=== PATIENT | male | born 1990 | race Caucasian/White ===

== ENCOUNTER 2017-03-20 13:51 | Emergency (ER) | payer SELFPAY | END 2017-03-20 15:25 | disposition home or self-care (01) | LOC: SCSER 13:51 | DX: J11.1 Influenza due to unidentified influenza virus with other respiratory manifestations (principal); K50.90 Crohn's disease, unspecified, without complications; F31.9 Bipolar disorder, unspecified; F17.210 Nicotine dependence, cigarettes, uncomplicated | CPT/HCPCS: 99283 ==

== ENCOUNTER 2017-04-17 12:04 | Emergency (ER) | payer SELFPAY ==
[2017-04-17] MEDS ORDERED: Ondansetron HCl/PF 4 MG/2 ML Vial ONE (13:05)
[2017-04-17] MEDS ORDERED: Promethazine HCl 25 MG/ML VIAL ONE (13:24)
[2017-04-17] MEDS ORDERED: cloNIDine 0.1 MG TAB ONE (14:35)
== END 2017-04-17 16:09 | disposition home or self-care (01) ==
LOC: ERS 12:04
DX: F11.23 Opioid dependence with withdrawal (principal); F31.9 Bipolar disorder, unspecified; F17.210 Nicotine dependence, cigarettes, uncomplicated
CPT/HCPCS: 96365; 96375; J2405; J2550

== ENCOUNTER 2017-04-24 15:28 | Emergency (ER) | payer SELFPAY, OTHER ==
--- NOTE | 2017-04-24 16:27 | RAD ---
CHEST ONE VIEW 04/24/17 HISTORY: Intractable emesis. COMPARISON: Chest dated 07/25/14. FINDINGS: The lungs are clear. No pneumothorax or effusion. The cardiac silhouette and mediastinal contours are within normal limits. IMPRESSION: No acute intrathoracic abnormality. No significant change. POS: [facility]
[2017-04-24] MEDS ORDERED: Ondansetron HCl/PF 4 MG/2 ML Vial ONE (16:31)
[2017-04-24] MEDS ORDERED: Famotidine/PF 20 mg/2ml Vial ONE (16:31)
[2017-04-24 16:39] LABS: #Basophils 0.1 thou/uL (0.0-0.2); #Lymphocytes 3.4 thou/uL (1.20-3.40); #Monocytes 0.9 thou/uL (0.11-0.59); #Neutrophils 11.1 thou/uL (1.40-6.50); %Basophils 0.8 % (0.0-1.0); %Eosinophils 0.3 % (0.0-10.0); %Lymphocytes 21.7 % (21.0-51.0); %Monocytes 5.6 % (0.0-10.0); %Neutrophils 71.6 % (42.0-75.0); Mean Corpuscular HGB CONC 33.9 g/dL (32.0-36.0); Mean Corpuscular Volume 91.4 fl (80.0-94.0); Mean Platelet Volume 7.5 fL (7.4-10.4); Platelet Count 267 thou/uL (130-400); RBC Distribution Width 12.6 % (11.5-14.5); Red Blood Cell (RBC) Count 5.15 mill/uL (4.70-6.10); White Blood Cell (WBC) Count 15.5 thou/uL (4.8-10.8)
[2017-04-24 17:00] LABS: ALT (SGPT) 23 U/L (8-55); AST (SGOT) 12 U/L (5-34); Albumin 4.9 g/dL (3.5-5.0); Alkaline Phosphatase 111 U/L (40-150); Anion Gap 14 mmol/L (10-20); BUN (Urea Nitrogen) 10 mg/dL (8.9-20.6); Bilirubin, Total 0.4 mg/dL (0.2-1.2); Calc. Creatinine Clearance 0 mL/min (70-130); Calcium 10.3 mg/dL (7.8-10.44); Carbon Dioxide 21 mmol/L (22-29); Chloride 108 mmol/L (98-107); Estimated GFR-MDRD Greater than 90; Globulin 3.3 g/dL (2.4-3.5); Glucose 87 mg/dL (70-105); Potassium 3.2 mmol/L (3.5-5.1); Protein, Total 8.2 g/dL (6.0-8.3); Sodium 140 mmol/L (136-145)
[2017-04-24] MEDS ORDERED: Promethazine HCl 25 MG/ML VIAL ONE (17:44)
--- NOTE | 2017-04-24 19:07 | RAD ---
TWO VIEWS ABDOMEN 04/24/17 HISTORY: Emesis. Nausea and vomiting. Symptoms worsening. COMPARISON: None. FINDINGS: Abdomen two views: Nonspecific bowel gas pattern. No suspicious densities in the abdomen or pelvis. Phleboliths in the l eft and right hemipelvis are noted. No differential air fluid levels. No pneumoperitoneum. IMPRESSION: Nonspecific bowel gas pattern. POS: [facility]
== END 2017-04-24 18:52 | disposition home or self-care (01) ==
LOC: ERS 15:28
DX: G43.A1 Cyclical vomiting, in migraine, intractable (principal); F31.9 Bipolar disorder, unspecified; F17.210 Nicotine dependence, cigarettes, uncomplicated; Z79.899 Other long term (current) drug therapy
CPT/HCPCS: 36415; 71045; 74019; 80053; 85025; 96372; 96374; 96375; J2405; J2550; S0028

== ENCOUNTER 2017-11-25 15:39 | Emergency (ER) | payer OTHER, SELFPAY ==
[2017-11-25] MEDS ORDERED: Promethazine HCl 25 MG/ML VIAL ONE (16:10)
[2017-11-25 16:16] LABS: #Basophils 0.1 thou/uL (0.0-0.2); #Lymphocytes 3.8 thou/uL (1.20-3.40); #Monocytes 0.7 thou/uL (0.11-0.59); #Neutrophils 7.3 thou/uL (1.40-6.50); %Eosinophils 0.1 % (0.0-10.0); %Lymphocytes 31.9 % (21.0-51.0); %Monocytes 6.2 % (0.0-10.0); %Neutrophils 60.8 % (42.0-75.0); Hemoglobin 15.9 g/dL (14.0-18.0); Mean Corpuscular HGB CONC 34.4 g/dL (32.0-36.0); Mean Corpuscular Hemoglobin 28.8 pg (27.0-31.0); Mean Corpuscular Volume 83.6 fL (78.0-98.0); Mean Platelet Volume 7.4 fL (7.4-10.4); Platelet Count 262 thou/uL (130-400); RBC Distribution Width 11.3 % (11.5-14.5); Red Blood Cell (RBC) Count 5.51 mill/uL (4.70-6.10)
[2017-11-25 16:38] LABS: ALT (SGPT) 44 U/L (8-55); AST (SGOT) 26 U/L (5-34); Alkaline Phosphatase 117 U/L (40-150); Anion Gap 17 mmol/L (10-20); BUN (Urea Nitrogen) 23 mg/dL (8.9-20.6); Bilirubin, Total 0.6 mg/dL (0.2-1.2); Calc. Creatinine Clearance 0 mL/min (70-130); Calcium 10.5 mg/dL (7.8-10.44); Carbon Dioxide 23 mmol/L (22-29); Chloride 105 mmol/L (98-107); Estimated GFR-MDRD 78; Globulin 3.8 g/dL (2.4-3.5); Glucose 99 mg/dL (70-105); Potassium 3.8 mmol/L (3.5-5.1); Protein, Total 8.8 g/dL (6.0-8.3); Sodium 141 mmol/L (136-145)
== END 2017-11-25 17:29 | disposition home or self-care (01) ==
LOC: SCSER 15:39
DX: F11.23 Opioid dependence with withdrawal (principal); F31.9 Bipolar disorder, unspecified
CPT/HCPCS: 36415; 80053; 85025; 96361; 96365; J2550

== ENCOUNTER 2017-11-30 10:40 | Emergency (ER) | payer SELFPAY ==
[~2017-11-30 10:40] MED LIST: Iopamidol 370 76% 100 ML VIAL ONE
[2017-11-30] MEDS ORDERED: Ondansetron ODT 4 MG TAB ONE (11:04)
[2017-11-30 11:24] LABS: #Basophils 0.2 thou/uL (0.0-0.2); #Lymphocytes 2.9 thou/uL (1.20-3.40); #Monocytes 0.8 thou/uL (0.11-0.59); %Basophils 1.4 % (0.0-1.0); %Eosinophils 0.4 % (0.0-10.0); %Lymphocytes 26.9 % (21.0-51.0); %Monocytes 7.2 % (0.0-10.0); Hemoglobin 15.7 g/dL (14.0-18.0); Mean Corpuscular HGB CONC 34.3 g/dL (32.0-36.0); Mean Corpuscular Hemoglobin 29.2 pg (27.0-31.0); Mean Corpuscular Volume 85.1 fL (78.0-98.0); Mean Platelet Volume 7.6 fL (7.4-10.4); Platelet Count 248 thou/uL (130-400); RBC Distribution Width 11.8 % (11.5-14.5); Red Blood Cell (RBC) Count 5.39 mill/uL (4.70-6.10); White Blood Cell (WBC) Count 10.9 thou/uL (4.8-10.8)
[2017-11-30] MEDS ORDERED: Pantoprazole 40 MG VIAL ONE (11:51)
[2017-11-30] MEDS ORDERED: Lorazepam 2 MG/ML VIAL ONE (11:51)
--- NOTE | 2017-11-30 12:09 | CT ---
CT OF THE ABDOMEN AND PELVIS WITH IV CONTRAST: INDICATION: History of vomiting and abdominal pain. COMPARISON: None. FINDINGS: The lung bases are clear. No focal hepatic lesion is evident. Pancreas, adrenal glands, and spleen appear within normal limits. The kidneys are normal-appearing. No free fluid or enlarged lymph nodes are evident. There is normal appendix in the right lower quadrant. The colon is largely decompressed. Small bowel is of normal caliber. No free fluid is evident within the pelvis. No lymphadenopathy is seen. No acute osseous abnormalit y is noted. IMPRESSION: No CT abnormality is seen. POS: [facility]
[2017-11-30] MEDS ORDERED: Dicyclomine 20 MG TAB ONE (12:24)
[2017-11-30 12:38] LABS: ALT (SGPT) 15 U/L (8-55); AST (SGOT) 12 U/L (5-34); Albumin 4.9 g/dL (3.5-5.0); Alkaline Phosphatase 116 U/L (40-150); Anion Gap 19 mmol/L (10-20); BUN (Urea Nitrogen) 16 mg/dL (8.9-20.6); Bilirubin, Total 0.5 mg/dL (0.2-1.2); CK (CPK) 71 U/L (30-200); Calc. Creatinine Clearance 0 mL/min (70-130); Calcium 10.2 mg/dL (7.8-10.44); Carbon Dioxide 22 mmol/L (22-29); Chloride 104 mmol/L (98-107); Estimated GFR-MDRD 79; Globulin 3.5 g/dL (2.4-3.5); Glucose 106 mg/dL (70-105); Lipase 41 U/L (8-78); Potassium 3.7 mmol/L (3.5-5.1); Protein, Total 8.4 g/dL (6.0-8.3); Sodium 141 mmol/L (136-145)
== END 2017-11-30 13:08 | disposition home or self-care (01) ==
LOC: SCSER 10:40
DX: R10.32 Left lower quadrant pain (principal); F31.9 Bipolar disorder, unspecified; Z79.899 Other long term (current) drug therapy
CPT/HCPCS: 74177; 80053; 82550; 83690; 85025; 96361; 96374; 96375; C9113; J2060; Q0162

== ENCOUNTER 2021-02-01 14:22 | Emergency (ER) | payer OTHER, SELFPAY ==
[2021-02-01] MEDS ORDERED: Boostrix 0.5 ML (Tdap) VIAL ONE (15:34)
== END 2021-02-01 16:00 | disposition home or self-care (01) ==
LOC: ERS 14:22
DX: S61.012A Laceration without foreign body of left thumb without damage to nail, initial encounter (principal); Z23 Encounter for immunization; W27.8XXA Contact with other nonpowered hand tool, initial encounter; Y92.89 Other specified places as the place of occurrence of the external cause; Y99.0 Civilian activity done for income or pay
CPT/HCPCS: 12001; 90471; 90715

== ENCOUNTER 2021-03-11 08:06 | Emergency (ER) | payer SELFPAY ==
[2021-03-11] MEDS ORDERED: Lidocaine 1% w/Epinephrine 1:100K 20 ML VIAL ONE (08:26)
[2021-03-11] MEDS ORDERED: Ibuprofen 800 MG TAB ONE (08:31)
== END 2021-03-11 09:00 | disposition home or self-care (01) ==
LOC: ERS 08:06
DX: L02.415 Cutaneous abscess of right lower limb (principal)
CPT/HCPCS: 10060; 87070; 87186; 87205

== ENCOUNTER 2021-03-12 10:03 | Emergency (ER) | payer SELFPAY ==
[2021-03-12] MEDS ORDERED: Lidocaine 1% w/Epinephrine 1:100K 20 ML VIAL ONE (11:21)
[2021-03-12] MEDS ORDERED: Morphine 4 MG/ML VIAL ONE (11:21)
== END 2021-03-12 13:49 | disposition home or self-care (01) ==
LOC: ERS 10:03
DX: L02.415 Cutaneous abscess of right lower limb (principal); L03.115 Cellulitis of right lower limb; Z79.899 Other long term (current) drug therapy
CPT/HCPCS: 10060; 87070; 87077; 87186; 87205; 96372; J2270

== ENCOUNTER 2021-07-25 14:31 | Emergency (ER) | payer BC, SELFPAY | END 2021-07-25 16:14 | disposition home or self-care (01) | LOC: ERS 14:31 | DX: L02.214 Cutaneous abscess of groin (principal); Z87.891 Personal history of nicotine dependence | CPT/HCPCS: 99282 ==

== ENCOUNTER 2022-02-27 16:47 | Emergency (ER) | payer OTHER ==
[~2022-02-27 16:47] MED LIST changes: -Iopamidol 370 76% 100 ML VIAL ONE; +Iopamidol-370 76% 500 ML 1 ML ONE
[2022-02-27 17:16] LABS: #Eosinphils 0.1 thou/uL (0.0-0.7); #Lymphocytes 1.2 thou/uL (1.20-3.40); #Monocytes 0.5 thou/uL (0.11-0.59); #Neutrophils 2.1 thou/uL (1.40-6.50); %Basophils 0.3 % (0.0-1.0); %Eosinophils 2.5 % (0.0-10.0); %Monocytes 12.3 % (0.0-10.0); Hemoglobin 14.8 g/dL (14.0-18.0); Mean Corpuscular HGB CONC 34.3 g/dL (32.0-36.0); Mean Corpuscular Hemoglobin 31.9 pg (27.0-31.0); Mean Platelet Volume 7.8 fL (7.4-10.4); Platelet Count 174 10x3/uL (130-400); RBC Distribution Width 12.3 % (11.5-14.5); Red Blood Cell (RBC) Count 4.66 mill/uL (4.70-6.10); White Blood Cell (WBC) Count 3.9 10x3/uL (4.8-10.8)
[2022-02-27 17:42] LABS: ALT (SGPT) 99 U/L (8-55); AST (SGOT) 116 U/L (5-34); Albumin 4.5 g/dL (3.5-5.0); Alkaline Phosphatase 109 U/L (40-110); Anion Gap 14 mmol/L (10-20); BUN (Urea Nitrogen) 12 mg/dL (8.9-20.6); Bilirubin, Total 0.3 mg/dL (0.2-1.2); Calc. Creatinine Clearance 0 mL/min (70-130); Calcium 9.1 mg/dL (7.8-10.44); Carbon Dioxide 22 mmol/L (22-29); Chloride 107 mmol/L (98-107); Estimated GFR 96; Globulin 3.5 g/dL (2.4-3.5); Glucose 93 mg/dL (70-105); Lipase 51 U/L (8-78); Potassium 3.7 mmol/L (3.5-5.1); Sodium 139 mmol/L (136-145)
[2022-02-27] MEDS ORDERED: Morphine 4 MG/ML VIAL ONE (18:18)
[2022-02-27] MEDS ORDERED: Ondansetron PF 4 MG/2 ML Vial ONE (18:18)
[2022-02-27 19:15] LABS: Bilirubin Negative (Negative); Blood, Urine Negative (Negative); Clarity Clear (Clear); Glucose, Urine (Dipstick) Normal (Negative); Ketone, Urine Negative (Negative); Leukocyte Negative Leu/uL (Negative); Nitrite Negative (Negative); Protein, Urine (Dipstick) 20 mg/dL (Neg-Trace); Specific Gravity, Urine 1.034 (1.002-1.036); Urobilinogen Normal mg/dL (Less than 2)
[2022-02-27] MEDS ORDERED: Ketorolac Tromethamine 30 MG/ML VIAL ONE (20:25)
== END 2022-02-27 20:39 | disposition home or self-care (01) ==
LOC: ERS 16:47
DX: R10.31 Right lower quadrant pain (principal); I10 Essential (primary) hypertension
CPT/HCPCS: 36415; 74177; 80053; 81003; 82550; 83605; 83690; 85025; 96361; 96374; 96375; J1885; J2270; J2405; Q9967

== ENCOUNTER 2022-12-08 10:12 | Emergency (ER) | payer SELFPAY ==
[2022-12-08 10:45] LABS: #Basophils 0.1 thou/uL (0.0-0.2); #Eosinphils 0.1 thou/uL (0.0-0.7); #Monocytes 0.6 thou/uL (0.11-0.59); #Neutrophils 3.3 thou/uL (1.40-6.50); %Basophils 0.7 % (0.0-1.0); %Eosinophils 1.8 % (0.0-10.0); %Lymphocytes 44.2 % (21.0-51.0); %Monocytes 8.1 % (0.0-10.0); %Neutrophils 44.8 % (42.0-75.0); Hematocrit 43.7 % (42.0-52.0); Hemoglobin 15.2 g/dL (14.0-18.0); Mean Corpuscular HGB CONC 34.8 g/dL (32.0-36.0); Mean Platelet Volume 9.8 fL (7.4-10.4); Platelet Count 229 10x3/uL (130-400); RBC Distribution Width 12.7 % (11.5-14.5); Red Blood Cell (RBC) Count 4.75 mill/uL (4.70-6.10); White Blood Cell (WBC) Count 7.3 10x3/uL (4.8-10.8)
[2022-12-08 11:14] LABS: ALT (SGPT) 43 U/L (8-55); AST (SGOT) 39 U/L (5-34); Albumin 4.7 g/dL (3.5-5.0); Alkaline Phosphatase 106 U/L (40-110); Anion Gap 15 mmol/L (10-20); BUN (Urea Nitrogen) 16 mg/dL (8.9-20.6); Bilirubin, Total 0.5 mg/dL (0.2-1.2); Calc. Creatinine Clearance 0 mL/min (70-130); Carbon Dioxide 24 mmol/L (22-29); Chloride 105 mmol/L (98-107); Estimated GFR 101; Globulin 3.8 g/dL (2.4-3.5); Glucose 98 mg/dL (70-105); Potassium 4.4 mmol/L (3.5-5.1); Protein, Total 8.5 g/dL (6.0-8.3); Sodium 140 mmol/L (136-145)
[2022-12-08 11:16] LABS: Troponin I Less than 0.010 ng/mL (< 0.028)
[2022-12-08] MEDS ORDERED: Ketorolac Tromethamine 30 MG/ML VIAL ONE (12:26)
== END 2022-12-08 13:19 | disposition home or self-care (01) ==
LOC: ERS 10:12
DX: R07.9 Chest pain, unspecified (principal); I10 Essential (primary) hypertension; K21.9 Gastro-esophageal reflux disease without esophagitis; Z87.891 Personal history of nicotine dependence
CPT/HCPCS: 71045; 80053; 84484; 85025; 93005; 96374; J1885